=== PATIENT | male | born 1965 | race Caucasian/White ===

== ENCOUNTER 2022-12-25 13:37 | Outpatient (CLI) | payer OTHER, SELFPAY ==
[2022-12-25 19:05] LABS: Alanine Aminotransferase 28 U/L (6-50); Albumin Level 3.9 g/dL (3.5-5.1); Alkaline Phosphatase 95 U/L (38-126); Anion Gap 5 mmol/L (8-16); Aspartate Amino Transferase 33 U/L (17-59); Bilirubin,Total 0.6 mg/dL (0.2-1.3); Blood Urea Nitrogen 24 mg/dL (9-20); Calcium 8.6 mg/dL (8.4-10.2); Carbon Dioxide 30 mmol/L (22-30); Chloride 104 mmol/L (98-107); Cholesterol 231 mg/dL (0-200); Estimated Glomerular Filt Rate > 60; Glucose 104 mg/dL (65-110); HDL Direct 46 mg/dL; Potassium 4.3 mmol/L (3.4-5.0); Sodium 139 mmol/L (137-145); Triglycerides 109 mg/dL (<150)
[2022-12-25 19:17] LABS: LDL Cholesterol Direct 137 mg/dL
[2022-12-25 20:18] LABS: Free T4 Free Thyroxine Reflex 1.15 ng/dL (0.78-2.19)
[2022-12-26 07:41] LABS: Total Triiodothyronine (T3) 1.27 NG/ML (0.97-1.69)
[2022-12-29 21:28] LABS: PSA, Free 0.73 ng/mL; Percent Free Prostate Spec Ag 15 % (>25)
== END 2022-12-25 13:38 | disposition home or self-care (01) ==
LOC: ANHGOSHLAB 13:39
PROVIDERS: PCP Family Medicine; Visit Provider Family Medicine
DX: E03.9 Hypothyroidism, unspecified (principal); E78.5 Hyperlipidemia, unspecified; R97.20 Elevated prostate specific antigen [PSA]
CPT/HCPCS: 36415; 80053; 80061; 84153; 84154; 84439; 84443; 84480

== ENCOUNTER 2023-01-22 08:25 | Outpatient (CLI) | payer OTHER, SELFPAY ==
--- NOTE | 2023-02-02 16:00 | WPDHOMESLEEP ---
Sleep Study - Home Unattended Date of Study: 01/22/23 Ordering Provider: Barak Arnold MD Interpreting Provider: Natalee Carrera, DO Home Sleep Study Type: Watch NEETA Height: 1.71 m Weight: 138.346 kg Body Mass Index: 47.0 Neck Circumference (inches): 18.5 [place]: 15 Reason for Sleep Study Daytime hypersomnia, snoring Sleep History The patient is a 57-year-old male with hypothyroidism, depression, hypertension and morbid obesity that had a sleep study ordered by his primary care physician for evaluation sleep apnea. The patient rarely awakens from sleep short of breath. He rarely awakens at night with heartburn, belching or cough. He constantly snores and is frequently loudly enough that others complain. He frequently has trouble sleeping when he has a cold. He occasionally wakes up gasping for air throughout the night. He frequently has breathing problems at night observed by himself or others. He rarely sweats excessively at night. He rarely has heart palpitations or irregular heartbeats during the night. He frequently falls asleep during the day but never while driving. He occasionally has trouble at school or work due to sleepiness. He rarely feels unable to move when waking up or falling asleep. He denies hypnagogic / hypnopompic hallucinations. He occasionally feels afraid of going to sleep. He denies remembering his dreams. He occasionally has thoughts racing through his mind. He frequently feels sad or depressed. He rarely has anxiety. He rarely has muscular tension. He denies noticing parts of his body jerk. He occasionally has crawling and aching feelings in his legs but rarely has leg pain during the night. He occasionally grinds his teeth during sleep but never awakens with a morning jaw pain. He is frequently bothered by pain during the day. He rarely wakes up feeling stiff in the morning. He rarely wakes up with sore or achy muscles. He constantly wakes up with pain in the neck, spine or other joints. He goes to bed at 7:00 p.m. on weekdays and 8:00 p.m. on the weekends. He is able to fall asleep relatively quickly. He wakes up 4-5 times throughout the night for unknown reasons. He can usually fall back asleep within a few minutes. He wakes up at midnight on weekdays and between 1-2 a.m. on the weekends. He typically gets 5 hours of sleep per night. He will stay in bed for 5-10 minutes after waking up in the morning. He currently lives with his . He does not consume any caffeinated beverages within 2 hours of bedtime. He does not engage in physical exercise before bedtime. He will watch television before falling asleep. He denies taking naps in the afternoon or the evening. He drinks 2 cups of caffeinated beverage per day. He drinks alcohol 2-3 times per year. He denies recreational drug use. [facility] Past Medical History Medical History Arthritis Hernia Surgical History Surgical History H/O inguinal hernia repair History of total knee replacement Bilat Family History Family History Mother Cerebrovascular accident Thyroid condition Father Dementia Alcoholism Asthma Hypertension Sibling Alcoholism Hypertension Social History Social History Smoking status: Never smoker Medications Home Medications Medication Instructions Recorded Confirmed Type bupropion HCl 300 mg 24 hr tablet, 300 mg PO QAM #90 tabs 12/25/22 12/25/22 Rx extended release (Wellbutrin XL) celecoxib 200 mg capsule (Celebrex) 200 mg PO DAILY 12/25/22 History cyclobenzaprine 5 mg tablet 5 mg PO TID PRN 12/25/22 History levothyroxine 150 mcg tablet 300 mcg PO DAILY #180 tabs 01/28/23 Rx Sleep Procedure The sleep study was completed using [employer]
[2023-02-02 16:16] VITALS: BMI 47.0
== END 2023-01-24 09:43 | disposition home or self-care (01) ==
PROVIDERS: PCP Family Medicine; Visit Provider Family Medicine
DX: G47.30 Sleep apnea, unspecified (principal); G47.33 Obstructive sleep apnea (adult) (pediatric); G47.34 Idiopathic sleep related nonobstructive alveolar hypoventilation
CPT/HCPCS: 95800

== ENCOUNTER 2023-02-26 08:12 | Outpatient (CLI) | payer OTHER, SELFPAY ==
--- NOTE | 2023-03-17 13:45 | WPDSLEEPSTUD ---
Sleep Study Date of Study: 02/26/23 Ordering Provider: Barak Arnold MD Interpreting Physician: Natalee Carrera DO Sleep Study Type: BiPAP Titration Height: 1.73 m Weight: 145.15 kg Body Mass Index: 48.6 Neck Circumference (inches): 19 [place]: 15 Reason for Sleep Study The patient had a WatchPAT home sleep test on 01/22/2023 that showed an overall AHI of 28.9 with desaturation down to 67%. He spent 35.2 minutes, 10.4% of total sleep time with an SpO2 <88%. Sleep History The patient is a 57-year-old male with hypothyroidism, depression, hypertension and morbid obesity that had a sleep study ordered by his primary care physician for evaluation sleep apnea.? The patient rarely awakens from sleep short of breath.? He rarely awakens at night with heartburn, belching or cough.? He constantly snores and is frequently loudly enough that others complain.? He frequently has trouble sleeping when he has a cold.? He occasionally wakes up gasping for air throughout the night.? He frequently has breathing problems at night observed by himself or others.? He rarely sweats excessively at night.? He rarely has heart palpitations or irregular heartbeats during the night.? He frequently falls asleep during the day but never while driving.? He occasionally has trouble at school or work due to sleepiness.? He rarely feels unable to move when waking up or falling asleep.? He denies hypnagogic / hypnopompic hallucinations.? He occasionally feels afraid of going to sleep.? He denies remembering his dreams.? He occasionally has thoughts racing through his mind.? He frequently feels sad or depressed.? He rarely has anxiety.? He rarely has muscular tension.? He denies noticing parts of his body jerk.? He occasionally has crawling and aching feelings in his legs but rarely has leg pain during the night.? He occasionally grinds his teeth during sleep but never awakens with a morning jaw pain.? He is frequently bothered by pain during the day.? He rarely wakes up feeling stiff in the morning.? He rarely wakes up with sore or achy muscles.? He constantly wakes up with pain in the neck, spine or other joints.? He goes to bed at 7:00 p.m. on weekdays and 8:00 p.m. on the weekends.? He is able to fall asleep relatively quickly.? He wakes up 4-5 times throughout the night for unknown reasons.? He can usually fall back asleep within a few minutes.? He wakes up at midnight on weekdays and between 1-2 a.m. on the weekends.? He typically gets 5 hours of sleep per night.? He will stay in bed for 5-10 minutes after waking up in the morning.? He currently lives with his .? He does not consume any caffeinated beverages within 2 hours of bedtime.? He does not engage in physical exercise before bedtime.? He will watch television before falling asleep.? He denies taking naps in the afternoon or the evening.? He drinks 2 cups of caffeinated beverage per day.? He drinks alcohol 2-3 times per year.? He denies recreational drug use. [facility] Past Medical History Medical History Arthritis Hernia Surgical History Surgical History H/O inguinal hernia repair History of total knee replacement Bilat Family History Family History Mother Cerebrovascular accident Thyroid condition Father Dementia Alcoholism Asthma Hypertension Sibling Alcoholism Hypertension Social History Social History Smoking status: Never smoker Lack of Transportation: No Lack of Food: Sometimes True Current Housing: I Have Housing Concerned About Future Housing: No Difficulty Paying Gas/Electric Bills: No Difficulty Paying for Meds: No Currently Unemployed: No Education: High School Diploma/GED Difficulty w/ Childcare or Family Care: No Medication
[2023-03-17 14:03] VITALS: BMI 48.6
== END 2023-02-27 06:50 | disposition home or self-care (01) ==
LOC: ANHCSM 08:13
PROVIDERS: PCP Family Medicine; Visit Provider Family Medicine
DX: G47.33 Obstructive sleep apnea (adult) (pediatric) (principal); G47.34 Idiopathic sleep related nonobstructive alveolar hypoventilation
CPT/HCPCS: 95811